=== PATIENT | male | born 1975 | race Caucasian/White ===

== ENCOUNTER 2016-10-22 12:59 | Day surgery (SDC) | payer OTHER ==
[~2016-10-22] VITALS: Ht 182.9 cm; Wt 121.8 kg
[2016-10-22 15:53] VITALS: BP 135/85; PULSE 57; RESP 24
[2016-10-22] MEDS ORDERED: PROPOFOL 40 ML ONE (17:06)
[2016-10-22] MEDS ORDERED: LIDOCAINE 2% (SDV) 5 ML INJ ONE (17:06)
[2016-10-22 17:30] VITALS: BP 126/84; PULSE 69; RESP 24
--- NOTE | 2016-10-24 07:23 | GILP ---
DATE OF PROCEDURE: 10/22/2016 PROCEDURE: Colonoscopy with biopsies, enteroscopy with biopsies. BRIEF HISTORY AND INDICATIONS: The patient is being evaluated. PREMEDICATION: Monitored anesthesia care by anesthesiologist. BRIEF HISTORY AND INDICATIONS: The patient is being evaluated for history of colitis and symptomato logy of diarrhea. PREMEDICATION: Monitored anesthesia care by anesthesiologist. SURGEON: Rolly Daugherty MD INSTRUMENT USED: Olympus colonoscope. PREPARATION: Was adequate. TECHNIQUE: After informed consent, with the patient/relatives understanding the procedure, its indic ations potential risks and complications, including but not limited to: allergic reaction, bleeding, perforation, infection, missed lesions and after all pertinent questions were answered to the patie nt's satisfaction, the patient/relatives signed the witnessed informed consent. Following this, premedication was administered slowly IV push by under careful cardiovascular and re spiratory monitoring with pulse oximetry, automatic blood pressure and athletic monitor. Once the sedativ e effect was achieved, the patient was placed in the left lateral decubitus position, digital rectal examination was performed. The colonoscope was then introduced and advanced under visual control th roughout all segments of the colon including: the rectum, sigmoid, descending colon, splenic flexure , transverse colon, hepatic flexure, ascending colon and finally reaching the cecum which was clearl y identified by transillumination, finger indentation and the ileocecal valve. Careful examination o f the mucosa of the lower gastrointestinal tract both on insertion as well as withdrawal of the inst rument disclosed the following findings: Rectal Examination: No evidence of perirectal disease, no masses. Colonic Mucosa: The colonic mucosa is remarkable for multiple ulcerations in the area of the cecum. The remainder of colonic mucosa unremarkable. The ileocecal valve was clearly identified and appe ars unremarkable. Biopsies were obtained of the area with ulcerations. Terminal ileum was entered and appears questionably atrophic, biopsies were obtained. The instrument was then withdrawn. [place] om biopsies were obtained of the right and left colon in addition to the cecum. Moderate size inter nal hemorrhoids are noted. IMPRESSION: 1. Multiple ulcerations in the cecum. Biopsies obtained, rule out inflammatory bowel disease or Cr ohn's, most likely. 2. Otherwise, normal colonic mucosa. Random biopsies of right and left colon. 3. Terminal ileum with questionable atrophic changes. Biopsies obtained to rule out inflammatory b owel disease, Crohn's. PLAN: The patient will be treated with mesalamine. Pathology will be reviewed as soon as available . Further recommendations will depend on the patient's clinical course as well as review of biopsie s. Dictated By: ROLLY DAUGHERTY MS/MANOLO Conf#: [id number] DID#: [id number] CC: ROLLY DAUGHERTY;*EndCC*
== END 2016-10-22 20:56 | disposition home or self-care (01) ==
LOC: GIL 12:59
PROVIDERS: ATTEND Internal Medicine Gastroenterology
DX: K63.3 Ulcer of intestine (principal)
CPT/HCPCS: 45380; 88305; Z7610